=== PATIENT | female | born 1975 | race Two or more races ===

== ENCOUNTER 2018-08-09 15:22 | Emergency (ER) | payer MEDICAID ==
[~2018-08-09] VITALS: Ht 152.4 cm; Wt 65.8 kg
[2018-08-09] MEDS ORDERED: KETOROLAC TROMETHAMINE INJ 30 MG/ML VIAL ONE (15:53)
[2018-08-09] MEDS ORDERED: KETOROLAC TROMETHAMINE INJ 30 MG/ML VIAL IM ONE (16:00)
--- NOTE | 2018-08-09 16:12 | NUR ---
patient was asked prior toradol administration if shes and verbalized that she is not , MD made aware.
[2018-08-09 16:51] VITALS: BP 128/74
--- NOTE | 2018-08-09 17:00 | NUR ---
Patient discharged to home in stable condition. Written and verbal after care instructions given. Patient verbalizes understanding of instruction.
== END 2018-08-09 16:51 | disposition home or self-care (01) ==
LOC: ER 15:24
DX: S16.1XXA Strain of muscle, fascia and tendon at neck level, initial encounter (principal); S20.212A Contusion of left front wall of thorax, initial encounter; I10 Essential (primary) hypertension; V49.49XA Driver injured in collision with other motor vehicles in traffic accident, initial encounter; Y93.89 Activity, other specified; Y92.410 Unspecified street and highway as the place of occurrence of the external cause; Y99.8 Other external cause status
CPT/HCPCS: 71045; 72040; 96372; 99283; A4606; J1885; Z7610